=== PATIENT | female | born 1990 | race Caucasian/White ===

== ENCOUNTER 2023-01-21 09:56 | Day surgery (SDC) | payer OTHER ==
[2023-01-18 16:25] VITALS: BMI 50.1
[~2023-01-21 09:56] MED LIST: SODIUM CHLORIDE 0.9% 1,000 ML IV SCH
[2023-01-21] MEDS ORDERED: SODIUM CHLORIDE 0.9% 500 ML 500 ML IV ONE (10:14)
[2023-01-21 10:53] VITALS: BP 149/72; TEMP 97.6
[2023-01-21 12:13] VITALS: PULSE 82; RESP 20
--- NOTE | 2023-01-25 18:51 | P.EPPROC ---
- EP Procedure Note Electrophysiology Procedure Note: Diagnosis Recurrent presyncope Twelve-lead EKG shows sinus rhythm normal AL narrow QRS normal ST segments Tilt table test per protocol Baseline blood pressure 120 follow 53 mmHg Baseline heart rate 63 beats minute Patient was tilted upright at an angle of 70 per protocol, blood pressure and heart rate remained stable through the procedure She complained of a floating sensation, bad headache numbness and pain upon standing There was no evidence for neurocardiogenic syncope or dysautonomia She is laid supine at the end of the procedure Impression normal twelve-lead EKG Normal heart rate and blood pressure response to upright tilting
== END 2023-01-21 12:35 | disposition home or self-care (01) ==
LOC: CATHEP 09:56
PROVIDERS: ATTEND Internal Medicine Clinical Cardiac Electrophysiology
DX: R55 Syncope and collapse (principal); J45.909 Unspecified asthma, uncomplicated; Z79.899 Other long term (current) drug therapy; Z87.891 Personal history of nicotine dependence
CPT/HCPCS: 81025; 93660

== ENCOUNTER → 2023-03-30 | Outpatient (CLI) | payer OTHER ==
--- NOTE | 2023-03-30 17:10 | XR ---
EXAMINATION TYPE: XR chest 2V DATE OF EXAM: 03/30/2023 5:01 PM CLINICAL INDICATION:Female, 32 years old with history of R05.9 Cough; [facility] COMPARISON: None TECHNIQUE: XR chest 2V Frontal and lateral views of the chest. FINDINGS: Lungs/Pleura: There is no evidence of pleural effusion, focal consolidation, or pneumothorax. Pulmonary vascularity: Unremarkable. Heart/mediastinum: Cardiomediastinal silhouette is unremarkable. Musculoskeletal: No acute osseous pathology. Other findings: None IMPRESSION: No acute cardiopulmonary disease/process.
== END | disposition home or self-care (01) ==
LOC: RADXRMAIN 16:43
PROVIDERS: ATTEND Family Medicine
DX: R05.9 Cough, unspecified (principal)
CPT/HCPCS: 71046

== ENCOUNTER → 2023-06-23 | Outpatient (CLI) | payer OTHER ==
--- NOTE | 2023-06-23 17:51 | CA ---
Transthoracic Echo Report Name: Sherine Loco Age: 33 Gender: F : 1990 Exam Date: 06/23/2023 13:28 Exam Location: [facility] Ht (in): 68 Wt (lb): 340 Ordering Physician: Pebbles Caro MD Attending/Referring Phys: Carline Mustafa [facility], [facility] Grievance And Appeals Specialist Heather Martin RDCS Procedure CPT: Indications: R42 POSTURAL DIZZINESS R20.2 PARESTHESIA Cardiac Hx: Technical Quality: Fair Contrast 1: Total Dose (mL): Contrast 2: Total Dose (mL): MEASUREMENTS (Male / Female) Normal Values 2D ECHO LV Diastolic Diameter PLAX 4.3 cm 4.2 - 5.9 / 3.9 - 5.3 cm LV Systolic Diameter PLAX 2.7 cm IVS Diastolic Thickness 1.2 cm 0.6 - 1.0 / 0.6 - 0.9 cm LVPW Diastolic Thickness 1.1 cm 0.6 - 1.0 / 0.6 - 0.9 cm LV Relative Wall Thickness 0.5 RV Internal Dim ED PLAX 3.3 cm LA Volume 56.2 cm??? 18 - 58 / 22 - 52 cm??? LA Volume Index 20.0 cm???/m??? 16 - 28 cm???/m??? M-MODE Aortic Root Diameter MM 2.9 cm LA Systolic Diameter MM 4.3 cm LA Ao Ratio MM 1.5 AV Cusp Separation MM 1.8 cm DOPPLER AV Peak Velocity 125.1 cm/s AV Peak Gradient 6.3 mmHg AV Mean Velocity 103.5 cm/s AV Mean Gradient 4.4 mmHg AV Velocity Time Integral 30.7 cm LVOT Peak Velocity 117.3 cm/s LVOT Peak Gradient 5.5 mmHg LVOT Velocity Time Integral 24.7 cm MV Area PHT 2.9 cm??? Mitral E Point Velocity 72.1 cm/s Mitral A Point Velocity 51.4 cm/s Mitral E to A Ratio 1.4 MV Deceleration Time 262.3 ms MV E' Velocity 7.0 cm/s Mitral E to MV E' Ratio 10.3 TR Peak Velocity 160.7 cm/s TR Peak Gradient 10.3 mmHg Right Ventricular Systolic Press 15.3 mmHg FINDINGS Left Ventricle Mildly increased left ventricular wall thickness. Left ventricular cavity size normal. Normal left ventricular systolic function with no obvious regional wall motion abnormalities. Left ventricular ejection fraction is estimated at 55-60 %. Right Ventricle Normal right ventricular size and function. Right ventricular systolic pressure within normal limits. Right Atrium Normal right atrial size. Left Atrium Mildly increased left atrial volume. Mitral Valve Structurally normal mitral valve. Mild mitral regurgitation. Aortic Valve Trileaflet aortic valve. No aortic valve stenosis or regurgitation. Tricuspid Valve Structurally normal tricuspid valve. Mild tricuspid regurgitation. Pulmonic Valve Structurally normal pulmonic valve. Trace pulmonic regurgitation. Pericardium No pericardial effusion. Aorta Normal size aortic root and proximal ascending aorta. CONCLUSIONS Normal LV function Mild mitral regurgitation Previewed by: Dr. Wilmer Hoffman MD (Electronically Signed) Final Date: 23 June 2023 17:50
== END | disposition home or self-care (01) ==
LOC: RADECHMAIN 13:05
PROVIDERS: ATTEND Family Medicine
DX: I34.0 Nonrheumatic mitral (valve) insufficiency (principal); R20.2 Paresthesia of skin; R29.2 Abnormal reflex; R68.89 Other general symptoms and signs; M25.50 Pain in unspecified joint
CPT/HCPCS: 93306

== ENCOUNTER → 2023-06-24 | Outpatient (CLI) | payer OTHER ==
[2023-06-24 12:53] LABS: Ionized Calcium 4.8 mg/dL (4.5-5.3)
[2023-06-24 13:05] LABS: ALT 41 U/L (4-34); AST 30 U/L (14-36); African American GFR (CKD) >90 (>60 ml/min/1.73 sqM); Albumin 3.7 g/dL (3.5-5.0); Albumin/Globulin Ratio 1.2; Alkaline Phosphatase 91 U/L (38-126); Anion Gap 5 mmol/L; Blood Urea Nitrogen 11 mg/dL (7-17); Calcium 8.8 mg/dL (8.4-10.2); Carbon Dioxide 24 mmol/L (22-30); Chloride 108 mmol/L (98-107); Globulin 3.2 g/dL; Glucose 92 mg/dL (74-99); Magnesium 1.9 mg/dL (1.6-2.3); Non-African American GFR(CKD) >90 (>60 ml/min/1.73 sqM); Potassium 4.2 mmol/L (3.5-5.1); Sodium 137 mmol/L (137-145); Total Bilirubin 0.5 mg/dL (0.2-1.3); Total Protein 6.9 g/dL (6.3-8.2)
[2023-06-24 13:14] LABS: Partial Thromboplastin Time 26.5 sec (22.0-30.0); Prothrombin Time 10.8 sec (10.0-12.5)
[2023-06-24 13:17] LABS: T4, Free (Free Thyroxine) 1.08 ng/dL (0.78-2.19)
[2023-06-24 16:01] LABS: Appearance,Urine Cloudy (Clear); Bilirubin,Urine Negative (Negative); Blood,Urine Negative (Negative); Color,Urine Yellow (Yellow); Ketones,Urine Negative (Negative); Nitrite,Urine Negative (Negative); PH, Urine 5.5; Specific Gravity,Urine 1.024 (1.001-1.030); Urobilinogen,Urine 0.2 E.U./DL
[2023-06-24 16:08] LABS: Basophils # (A) 0.03 X 10*3/uL (0.00-0.10); Basophils % (A) 0.4 %; Eosinophils # (A) 0.12 X 10*3/uL (0.04-0.35); Eosinophils % (A) 1.7 %; HCT 38.9 % (37.2-46.3); Lymphocytes % (A) 29.8 %; MCHC 30.8 g/dL (32.0-37.0); MCV 77.6 FL (80.0-97.0); Mean Platelet Volume 11.7 FL (9.5-12.2); Monocytes # (A) 0.41 X 10*3/uL (0.20-1.00); Monocytes % (A) 5.8 %; NRBC Per 100 WBC 0 X 10*3/uL (0.00-0.01); Neutrophils # (A) 4.35 X 10*3/uL (1.80-7.70); Neutrophils % (A) 61.9 %; Platelet Count 239 X 10*3/uL (140-440); RBC 5.01 X 10*6/uL (4.10-5.20); RDW 14.6 % (11.5-14.5); WBC 7.04 X 10*3/uL (4.50-10.00)
[2023-06-24 16:19] LABS: Bacteria,Urine 3+ (None Seen)
[2023-06-24 16:22] LABS: Erythrocyte Sedimentation Rate 50 mm/Hr (0-20)
[2023-06-24 16:29] LABS: Thyroid Peroxidase Antibodies 11.3 U/mL (0.0-33.0)
[2023-06-24 16:43] LABS: Chol/HDL Ratio 3.36 Ratio; VLDL Calculation 15.28 mg/dL (5.00-40.00)
[2023-06-24 16:44] LABS: LDL Cholesterol,Calculated 87.9 mg/dL (0.0-131.0)
[2023-06-25 18:25] LABS: Vitamin D, 1, 25-Dihydroxy 35 pg/mL (20 - 79)
== END | disposition home or self-care (01) ==
LOC: LABWHC1 11:39
PROVIDERS: ATTEND Registered Nurse
DX: M25.50 Pain in unspecified joint (principal); R20.2 Paresthesia of skin; R68.89 Other general symptoms and signs; R42 Dizziness and giddiness
CPT/HCPCS: 36415; 80053; 80061; 81001; 82330; 82523; 82607; 82652; 82746; 83036; 83735; 83970; 84439; 84443; 84481; 85025; 85610; 85613; 85652; 85730; 86038; 86141; 86376